=== PATIENT | female | born 1975 | race Caucasian/White ===

== ENCOUNTER 2018-11-08 08:16 | Outpatient (CLI) | payer OTHER | END 2018-11-08 14:12 | disposition home or self-care (01) | LOC: LAB 08:16 | DX: J11.1 Influenza due to unidentified influenza virus with other respiratory manifestations (principal); J06.9 Acute upper respiratory infection, unspecified ==

== ENCOUNTER 2019-02-27 06:11 | Outpatient (CLI) | payer OTHER | END 2019-02-27 10:25 | disposition home or self-care (01) | LOC: LAB 06:11 | DX: M25.50 Pain in unspecified joint (principal); R51 Headache; R42 Dizziness and giddiness ==

== ENCOUNTER 2019-02-28 15:57 | Outpatient (CLI) | payer OTHER | END 2019-02-28 16:02 | disposition home or self-care (01) | LOC: LAB 15:57 | DX: N39.0 Urinary tract infection, site not specified (principal) ==

== ENCOUNTER → 2019-03-13 | Outpatient (CLI) | payer OTHER | END | disposition home or self-care (01) | LOC: NUCLEAR 09:58 | DX: I87.2 Venous insufficiency (chronic) (peripheral) (principal); R60.9 Edema, unspecified ==

== ENCOUNTER 2019-06-13 15:17 | Emergency (ER) | payer OTHER ==
[~2019-06-13] VITALS: Ht 167.6 cm; Wt 69.4 kg
== END 2019-06-13 18:41 | disposition home or self-care (01) ==
LOC: ER 15:17
DX: M54.5 Low back pain (principal)

== ENCOUNTER 2019-06-25 09:42 | Outpatient (CLI) | payer OTHER | END 2019-06-25 13:52 | disposition home or self-care (01) | LOC: MAMO-SONO 09:42 | DX: N60.01 Solitary cyst of right breast (principal); N92.0 Excessive and frequent menstruation with regular cycle; Z12.31 Encounter for screening mammogram for malignant neoplasm of breast; Z87.898 Personal history of other specified conditions ==

== ENCOUNTER 2019-08-15 10:15 | Outpatient (CLI) | payer OTHER | END 2019-08-15 11:30 | disposition home or self-care (01) | LOC: MAMO-SONO 10:15 | DX: N60.11 Diffuse cystic mastopathy of right breast (principal); N60.12 Diffuse cystic mastopathy of left breast; N63.42 Unspecified lump in left breast, subareolar ==

== ENCOUNTER 2019-10-29 10:21 | Outpatient (CLI) | payer OTHER | END 2019-10-29 10:26 | disposition home or self-care (01) | LOC: CERTIFICAD 10:21 → LAB 10:21 | DX: Z11.1 Encounter for screening for respiratory tuberculosis (principal) ==

== ENCOUNTER 2019-12-02 10:10 | Outpatient (CLI) | payer OTHER | END 2019-12-02 10:18 | disposition home or self-care (01) | LOC: LAB 10:10 | DX: J11.1 Influenza due to unidentified influenza virus with other respiratory manifestations (principal) ==

== ENCOUNTER 2019-12-08 09:15 | Outpatient (CLI) | payer OTHER | END 2019-12-08 09:20 | disposition home or self-care (01) | LOC: LAB 09:15 | DX: M54.5 Low back pain (principal) ==

== ENCOUNTER 2020-04-29 11:57 | Outpatient (CLI) | payer OTHER | END 2020-04-29 12:01 | disposition home or self-care (01) | LOC: LAB 11:57 | PROVIDERS: ATTEND General Practice | DX: R21 Rash and other nonspecific skin eruption (principal) ==

== ENCOUNTER → 2020-07-13 16:53 | Outpatient (CLI) | payer OTHER | END | disposition home or self-care (01) | LOC: PPH VACUNA 16:53 | DX: Z23 Encounter for immunization (principal) ==